=== PATIENT | female | born 1960 | race Two or more races ===

== ENCOUNTER → 2022-08-01 11:04 | Outpatient (BNVA) | payer OTHER, SELFPAY | PROVIDERS: PCP Internal Medicine; Visit Provider Dietitian, Registered | DX: E66.9 Obesity, unspecified (principal); Z68.34 Body mass index [BMI] 34.0-34.9, adult | CPT/HCPCS: 97802 ==

== ENCOUNTER 2025-03-05 08:32 | Outpatient (AMB) | payer OTHER, SELFPAY ==
--- NOTE | 2025-03-04 08:15 | MHC.OFFVIS ---
Vital Signs 03/05/25 08:37 Height 5 ft 5 in Weight 210 lb BMI 34.9 BP 140/79 H Blood Pressure Location Lt brachial Position Sitting Respiration 16 Pulse 100 Pulse Source Pulse Oximeter Pulse Oximetry (%) 96 Oxygen Delivery Method Room Air Intake Visit Reasons: Neuropathy /Fibromyalgia Rn Cvicu Required: No Allergies sulfamethoxazole [From Bactrim] Adverse Reaction (Severe, Verified 03/05/25 08:38) Anaphylaxis trimethoprim [From Bactrim] Adverse Reaction (Intermediate, Verified 03/05/25 08:38) Unknown oxycodone [From Percocet] Adverse Reaction (Unknown, Verified 03/05/25 08:38) Itching Medication List - Last Reconciled 03/05/25 by Ashley Rodarte LPN fluoxetine mg PO hydroxyzine HCl 25 mg PO DAILY HPI Comments Details: Aminata Is very pleasant 64 years old female who presents in my office with complains on pain in bilateral feet. She reports low socks distribution of the pain. She reports that she was diagnose with polyneuropathy in the past. She reports that she suffers from pain 30 years. It is not known what is the cause of her pain. She reports her pain in terms of tissue damage as tingling, stinging, numbness, burning, sharp, stiffness, poking sensation. She reports her pain in her feet 7 out of 10 today. She reported this pain sometimes getting even stronger to 8/10. She can not sleep normally because of her pain she can do activities of daily living she can take care of herself, but she can not function normally. She is working full-time as the therapist. Weather changes in motions aggravate her pain. Heat applications alleviate her pain. Oral medications alleviate her pain minimally. She reports that in the past she tried gabapentin to help her pain. It helped her pain moderately however she reports very severe dizziness and drowsiness on gabapentin even smaller doses. She tried Lyrica and Lyrica aggravated her depression and she had to stop because of the suicidal ideations. She found that fluoxetine helps her pain minimally to moderately. She tried acupuncture and it did not help her pain. Her past medical history significant for headaches, fatigue, depression anxiety and PTSD, shortness of breath, frequent UTIs, irritable bowel syndrome. Eight years ago she had fractured ankle and she has a surgery for the ORIF of the ankle. She denies smoking cigarettes. She denies drinking alcohol, she takes it less than once a month. She denies recreational drugs. [facility] Medical History (Updated 03/05/25 @ 09:08 by Aldo Baxter MD) Cervicalgia Fibromyalgia, primary Migraine Borderline personality disorder Restless leg syndrome JOSE (obstructive sleep apnea) Proctalgia fugax PTSD (post-traumatic stress disorder) Surgical History Hx of endoscopy Hx of eye surgery Hx of tubal ligation Hx of colonoscopy with polypectomy Hx of section S/P breast biopsy, right Family History Mother Depression Alcohol abuse Substance abuse Stroke Osteoporosis Father Pancreatic cancer FHx: cancer of prostate Cataract Colon polyps Sister Breast cancer, Onset Age: 60 Colon polyps Thyroid disease Spine degeneration Hypertension Brother CHF (congestive heart failure) Maternal Aunt Breast cancer Social History Household Members: Children Alcohol intake: current Alcohol intake frequency: a few times a month Patient Tobacco Use Status: Never used Tobacco Current occupational status: employed Current occupation: N Therapist Review of Systems Const All systems reviewed & are unremarkable except as noted in HPI and below Physical Exam Vital Signs: Last Vital Signs Pulse 100 03/05/25 08:37 Resp 16 03/05/25 08:37 BP 140/79 H 03/05/25 08:37 Pulse Ox 96 03/05/25 08:37 Oxygen Delivery Method Room Air 03/05/25 08:37 BMI result Body Mass Index 34.9 Const General: cooperative, healthy appearing, comfortable, no acute distress and well developed Nutritional Appearance: obese Orientation/consciousness: patient oriented x3 Limitations: no limitations HEENT Head: Yes normocephalic and Yes atraumatic Mouth: Normal oral and palatal mucosa present and moist mucous membranes Resp Effort & Inspection: normal respiratory effort and able to speak in complete sentences Cardio Jugular venous distension: no JVD GI Inspection: No distended Palpation (GI): Soft to palpation and nontender Neuro General: patient oriented x3 Extrem Other: No synovitis on inspection of the bilateral feet. no redness, no swelling Bilateral feet are sensitive to touch, significant tenderness , noswelling Normal gait Assessment & Plan Assessment & Plan (1) Idiopathic polyneuropathy: Code(s): G60.9 - Hereditary and idiopathic neuropathy, unspecified Category: Medical (2) Chronic pain syndrome: Code(s): G89.4 - Chronic pain syndrome Category: Medical Plan this patient came to my office with intention to perform a trial of Nevro spinal cord stimulator. She is suffering from peripheral neuropathy and it looks like that she will be a good candidate for Nevro SCS. She needs to go for psychological evaluation. As soon as she will past psychological evaluation we would need to admit her for the trial of Nevro SCS. Then it will be up to her to decide whether this device is helping her pain. Coding Level of Care Code New Pt Level 3 (11891) Diagnoses Idiopathic polyneuropathy G60.9 Chronic pain syndrome G89.4
[2025-03-05 08:37] VITALS: BP 140/79; PULSE 100; RESP 16; O2SAT 96; BMI 34.9
--- OUTSIDE RECORDS SUMMARY | 2025-03-05 08:45 | XMS_ITS | Encounter Summary ---
Author Organization [facility] Address [address] [place] [address] Care Team Providers Care Hotel Operation Manager Name Role Phone Teto Cardenas MD Primary Care Pr ovider Reason for Referral * Consultation (Routine) - Closed Specialty Diagnoses / Procedures Referred By Sarath mortensen Referred To Contact Otolaryngology Diagnoses Obstructive sleep apnea Teto Cardenas MD [address] [place] [id number] Phone: tel: fax: Federica Monzon MD [address] [facility] [address] [place] [address] Referral ID Status Reason Start Date Expiration Date V isits Requested Visits Authorized [id number] Closed Specialty Services Required 03/03/2025 03/03/2026 1 1 Encounter Details Date Type Department Care Team (Late st Contact Info) Description 03/03/2025 Telephone Adult Medicine [address] [address] eTto Cardenas MD [address] [place] [address] Social History Tobacco Use Types Packs/Day Years Used Date Smoking Tobacco: Never Smokeless Tobacco: Never Alcohol Use Standard Drinks/Week Comments Yes 0 (1 standard drink = 0.6 oz pur e alcohol) a glass of wine a month Housing Instability Answer Date Recorde d Are you worried that in the next 2 months you may not have stable housing? No 02/13/2025 Food Access & Nutrition Answer Date Rec orded Do you have access to a vari ety of food including fruits and vegetables? Yes 02/13/2025 Access to Healthcare Answer Date Record ed Within the last 3 months, ho w many times did you visit the emergency department for your medical care? 0 02/13/2025 Health Literacy Answer Date Recorded How often do you need to hav e someone help you when you read instructions, pamphlets, or other written material from your doctor or pharmacy? Never 02/13/2025 Caregiver: How often do you need to have someone help you when you read instructions, pamphlets, or other written material from your doctor or pharmacy? Not on file 02/13/2025 Financial Risk Answer Date Recorded How hard is it for you to pa y for the very basics like food, housing, medical care, and air conditioning / heating? Somewhat hard 02/13/2025 Transportation Answer Date Recorded Has the lack of transportati on kept you from meetings, work, or from getting things needed for daily living? No Has the lack of transportati on kept you from medical appointments or from getting medications? No 02/13/2025 Social Isolation Answer Date Recorded How often do you feel lonely or isolated from th ose around you? Never 02/13/2025 Food Risk Answer Date Recorded Within the past 12 months we worried whether our food would run out before we got money to buy more. Never true 02/13/2025 Within the past 12 months th e food we bought just didn't last and we didn't have money to get more. Never true 02/13/2025 Dependent Care Answer Date Recorded Do you need help finding or paying for care for your loved ones. For example, child and adolescent therapist or elderly care for an older adult? No 02/13/2025 Education Answer Date Recorded Do you think completing more education or training, like finishing a GED, going to college, or learning a trade, would be helpful for you? No 02/13/2025 Employment and Income Answer Date Recor ded During the last four weeks, have you been actively looking for work? No 02/13/2025 Living Situation Answer Date Recorded What is your living situation? 0 02/13/2025 Comments Unknown Sex and Gender Information Value Date Recorded Sex Assigned at Not on file Legal Sex Female 9:52 PM EST Gender Identity Not on file Sexual Orientation Not on file documented as of this encounter Progress Notes * Brandon Gilliland MA - 03/03/2025 10:05 AM EDT See 02/27/2025 [employer] message about referral. * Teto Cardenas MD - 03/03/2025 8:40 AM EDT New referral placed to provider in [facility] documented in this encounter Plan of Treatment Upcoming Encounters Date Type Department Care Team (Late st Contact Info) Description 03/13/2025 2:00 PM EDT Evaluation Outpatient [address] [address] Quinn Weston, PT [address] [place] [address] Scheduled Referrals Name Type Priority Associated Diagnoses Order Schedule Ambulatory referral to ENT Outpatient Referral Routine Obstructive sleep apnea 1 Occurrences starting 03/03/2025 until 03/03/2026 documented as of this encounter Visit Diagnoses Diagnosis Obstructive sleep apnea- Primary Obstructive sleep apnea (adult) (pediatric) documented in this encounter Additional Health Concerns Assessment Noted Time PHQ-9 Depression Total Score: 15 025 3:00 PM EDT documented as of this encounter Care Teams Hotel Operation Manager Relationship Specialty Start Date End Date Teto Cardenas MD [address] [place] [address] PCP - General 01/09/23 documented as of this encounter
--- OUTSIDE RECORDS SUMMARY | 2025-03-05 08:45 | XMS_ITS | Patient Health Record ---
Author Organization [facility] Address [address] [facility] [place] [address] Care Team Providers Care Group Home Supervisor Name Role Phone Delfino Farah Unavailable [phone] Allergies Allergen (clinical drug ingredient) Drug/Non Drug Allergy documented on EMR Reaction Allergy Type Onset Date Status sulfamethoxazole / trimethoprim Bactrim hives Drug Allergy Active acetaminophen / oxycodone Percocet itching Drug Allergy Active Reason For Referral No Information Medications Medication SIG (Take, Route, Frequency, Duration) Notes Start Date End Date Status Voltaren Active Phenazopyridine HCl 100 MG TAKE 2 CAPSUL ES BY MOUTH 3 TIMES A DAY NEEDED FOR PAIN Oral for 3 Not-Taking DULoxetine HCl 30 MG 1 capsule Orally On ce a day for 30 day(s) Not-Taking Pregabalin Active Allergy Active Fluoxetine Active Social History Tobacco Use: Social History Observation Description Date Details (start date - stop date) Never Smoker NA - NA Tobacco Use/Smoking Question Answer Notes Are you a: nonsmoker Additional Findings: Tobacco Non-User Aggressive non-smoker Alcohol Screen Question Answer Notes Did you have a drink containing alcohol in the p ast year? No Points 0 Interpretation Negative Tobacco use other than smoking: Question Answer Notes Are you an other tobacco user? No Problems Problem Type SNOMED Code ICD Code Onset Dates Problem Status W/U Status Risk Notes Problem Interstitial myositis (76619051) Interstitial myositis of left foot (M60.172) Active confirmed Plan Of Treatment Pending Test Test Name Order Date X ray : Foot, left 3V 06/21/2023 [id number] TENDON SHEATH/LIGAMENT 0 07/24/2023 Insurance Providers Payer Name Payer Address Payer Phone Subscriber Number Group Number Insured Name Patient Relationship to Insured Coverage Start Date Coverage End Date [employer] [address] [place] [phone] [id number] Christos Berwyn Self - patient is the insured Medical (General) History Medical History History ICD Code Depression ptsd Borderline Personality Disorder Restless leg syndrome Sleep apnea Headaches/Migraines Fibromyalgia Cervicalgia IBS Hemorrhage of gastrointestinal tract tubular adenoma Insomnia Anxiety peripheral neuropathic pain Neuropathy Surgical History Surgery Date(Month/Year) bilat eye sx 05/2017 Removal tumor polyp x3,Tubular adenoma x 1, hyperplastic x1. 2007 2 fx in right ankle 08/2019
--- OUTSIDE RECORDS SUMMARY | 2025-03-05 08:46 | XMS_ITS ---
Author Organization [facility] Address [address] [facility] [place] [address] Care Team Providers Care Residence Manager Name Role Phone Sofi Delfino Gresham [phone] Encounters Encounter Location Date Provider [facility] [address] [address] 09/10/2023 Delfino Farah Plan Of Treatment No Information Progress Notes * Mj ROGELaDOB:1960 (64 yo F)Acc No.[id number]:09/10/2023 Progress Notes Patient:Aminata LANTIGUA Provider:?Delfino Farah DPM :1960???Age:63 Y???Sex:Female D ate:09/10/2023 Address:[address] [facility] [address], [id number] Subjective: * Chief Complaints: * ??? * Medical History:? Objective: * Vitals:? Assessment: Plan: * Treatment: * Images: * The named appointment provid er may or may not be the originator of this progress note, and it is not deemed complete until electronically signed by the appointment provider. Sign off status: Pending * Provider:Rebecca Farah DPM Date:?2022 Generated for Chrissie ruiz/Ángel/eTransmitting on:?03/05/2025 08:45 AM EDT
--- OUTSIDE RECORDS SUMMARY | 2025-03-05 08:46 | XMS_ITS ---
Author Organization [facility] Address [address] [place] [address] Care Team Providers Care Architectural Examiner Name Role Phone Delfino Farah Unavailable [phone] REASON FOR VISIT 09/10/23 appt Encounters Encounter Location Date [facility] [address] [address] 09/07/2023 Delfino Farah Plan Of Treatment No Information Progress Notes * Kyra ROGELB:1960 (63 yo F)Acc No.[id number]:09/07/2023 Patient:?Aminata Rogel :1960???Age:63 Y???Sex:Female Address:[address] [facility] [address], [place], [address] * true * Date:? Generated for Printi ng/Malissag/eTransmitting on:?03/05/2025 08:45 AM EDT
--- OUTSIDE RECORDS SUMMARY | 2025-03-05 08:46 | XMS_ITS | Clinical Summary ---
Author Organization [address] Address [address] [place], [place] Phone Care Team Providers Care Hand Box Folder Name Role Phone Teto Cardenas MD Primary Care Pr ovider Allergies Active Allergy Reactions Criticality Noted Date Comments Oxycodone-Acetaminophen Itching 02/13/2013 Sulfa (Sulfonamide Antibiotics) 10/27/2022 Sulfamethoxazole-Trimethop rim 10/06/2015 Na Benzoate-Sulfamethoxazole- Trimethoprim Other Reaction(s): Hives/Urticaria Medications cetirizine (ZyrTEC) 10 mg capsule Take 1 Tab by mouth daily as needed. Active LORazepam (ATIVAN) 0.5 mg tablet Take 1 tablet (0.5 mg total) by mouth 1 (one) time each day if needed for anxiety. Max Daily Amount: 0.5 mg 10 tablet 4 Active hydrOXYzine HCL (ATARAX) 25 mg tabletIndicatio ns:Urticaria Take 1 tablet (25 mg total) by mouth at bedtime as needed for itching. 90 tablet 1 5 07/08/20 25 Active triamcinolone (KENALOG) 0.1 % ointmentIndicat ions:Dermatitis Apply small amounts to affected area every 12 hours. Do not use for more than 14 days at a time 15 g 5 Active FLUoxetine (PROzac) 20 mg capsuleIndicati ons:Anxiety and depression Take 1 capsule (20 mg total) by mouth 1 (one) time each day for 14 days, THEN 2 capsules (40 mg total) 1 (one) time each day. 168 capsule 5 05/28/20 25 Active meloxicam (Mobic) 7.5 mg tabletIndicatio ns:Bilateral hip pain Take 1 tablet (7.5 mg total) by mouth 1 (one) time each day if needed for moderate pain. 30 each 5 03/15/20 25 Active DULoxetine (CYMBALTA) [address] capsuleIndicati ons:Fibromyalgi a,Neuropathy Take 1 capsule (60 mg total) by mouth 1 (one) time each day. 90 capsule 1 5 02/14/20 25 Discontinue d(Therapy completed) cephalexin (KEFLEX) 500 mg capsule Take 1 capsule (500 mg total) by mouth 3 (three) times a day for 5 days. 15 each 5 02/28/20 25 Active Problems Problem Noted Date Diagnosed Date Interstitial cystitis 02/20/2025 Anxiety and depression 02/13/2025 Assessment & Plan (02/13/2025 9:20 PM EDT): Provided with information on how to wean off duloxetine. Start prozac Orders: FLUoxetine (PROzac) 20 mg capsule; Take 1 capsule (20 mg total) by mouth 1 (one) time each day for 14 days, THEN 2 capsules (40 mg total) 1 (one) time each day. Urticaria 01/09/2025 Assessment & Plan (02/13/2025 9:20 PM EDT): Continue hydrozyine 25mg nightly as needed Assessment & Plan (01/09/2025 12:58 PM EDT): Continue hydroxyzine as needed. She will resume [id number] Zyrtec Orders: hydrOXYzine HCL (ATARAX) 25 mg tablet; Take 1 tablet (25 mg total) by mouth at bedtime as needed for itching. Hyperlipidemia 07/18/2023 Assessment & Plan (02/13/2025 9:20 PM EDT): Currently not on statin Labs ordered at last visit which she will complete Assessment & Plan (01/09/2025 12:58 PM EDT): Currently not on a statin. Will update fasting labs Orders: Comprehensive metabolic panel; Future Lipid panel with reflex to direct LDL; Future Hemoglobin A1c; Future Neuropathy 07/18/2023 Assessment & Plan (02/13/2025 9:20 PM EDT): See hpi. [place] [facility] [place] Start OTC Voltaren gel which she already has. She does not need refills at this time Orders: Ambulatory referral to Pain Medicine; Future Assessment & Plan (01/09/2025 12:58 PM EDT): Orders: DULoxetine (CYMBALTA) [address] capsule; Take 1 capsule (60 mg total) by mouth 1 (one) time each day. Proctalgia fugax 04/13/2020 RLS (restless legs syndrome) 10/16/2014 Assessment & Plan (02/13/2025 9:20 PM EDT): Continue weighted blanket Orders: CBC and differential; Future Ferritin; Future Assessment & Plan (01/09/2025 12:58 PM EDT): Continue with weighted blanket at night which helps Obstructive sleep apnea 07/03/2014 Overview (10/09/2024): Polysomnogram: [facility] [place] RDI, Optimal CPAP 7->AHI 4 Resp sleep study 04-24-06 [facility] AHI 10.9 some CStokes observed, 08-01-06 [facility] AHI 4.7 w BiPAP 10/03 w Biflex 3 as initital setting RBMG Full Polysomnogram: Date 06/19/2014; SE 89%; SM 90%; REM 26.2% of study. RDI 16.9 (AHI 8.2), worse in REM (RDI 22.6 - AHI 18), Central apneas 3; Obstructive apneas 28; Mixed apneas 5; hypopneas 18; RERAs 57; worse supine, snored for 64% of the study; average oxygen saturation 92% (lowest 70%); average ETCO2 40 torr (highest 52 torr) PLMAI ~19.9 with PML 75.1/hour. Polysomnogram treatment study. Date 08/03/2014 . SE 84 % SM 90 %; spent 28.8 % of the study in REM. At the optimal pressure of 9; RDI 2.0 (AHI 0.8), Central apneas 1; Obstructive apneas 1; Mixed apneas 0; hypopneas 1; RERAs 5; and, average oxygen saturation was 94%. For the entire study, ETCO2 was 36 torr on average (49 torr highest); and, PLMAI ~11 with PLMs 56.2/hr. Compared to the diagnostic polysomnogram, there was improvement in RDI, AHI and snoring with a pressure of 9. [facility] Home Sleep Apnea Test: Date 03/21/2020; BMI 34; RDI 13, AHI 12; average oxygen saturation 93% (lowest 79% without saturations <88% for 5% or more of study) - Obstructive Sleep Apnea - mild; without sleep related hypoventilation by 2019 home sleep apnea test. Assessment & Plan (02/13/2025 9:20 PM EDT): Unable to tolerate CPAP due to claustrophobia. Referred to ENT for consideration of inspire procedure Orders: Ambulatory referral to ENT; Future Fibromyalgia 08/13/2012 Overview (10/09/2024): Onset 2010. Assessment & Plan (02/13/2025 9:20 PM EDT): See hpi. [place] [facility] [place] Offered pregabalin since we will be weaning off duloxetine which she declines for now. She will prefer to see pain mgt first Orders: Ambulatory referral to Pain Medicine; Future Assessment & Plan (01/09/2025 12:58 PM EDT): Continue duloxetine Orders: DULoxetine (CYMBALTA) 60 mg capsule; Take 1 capsule (60 mg total) by mouth 1 (one) time each day. Migraine 08/13/2012 Overview (10/09/2024): Onset 2010 Cervicalgia 06/28/2009 Irritable bowel syndrome wit h both constipation and diarrhea 09/11/2008 Overview (10/09/2024): Alternating C/D, onset in 20's. Assessment & Plan (02/13/2025 9:20 PM EDT): Continue OTC stool softener as needed Insomnia, unspecified 07/25/2006 Severe obesity (BMI 35.0-35. 9 with comorbidity) (CMS/[facility] V24, CMS/[facility] V28) 07/25/2006 Assessment & Plan (02/13/2025 9:20 PM EDT): We discussed the option for weight loss medication. She is interested in weight management consult and a referral is placed Orders: Ambulatory referral to Bariatric Surgery; Future Resolved Problems Problem Noted Date Diagnosed Date Resolved Date Hemorrhage of gastrointestinal tract 09/11/2008 02/13/2025 Overview (10/09/2024): IMO update Sleep apnea 05/28/2006 01/09/2025 Overview (10/09/2024): BIPAP 10/03. Repeat studies 09/2008 showed no sleep apnea. IMO update Depressive disorder 04/10/2006 02/14/20 Overview (10/09/2024): Dr. Robert ([facility])- PTSD, memory problems Encounters Date Type Department Care Team Description 03/03/2025 Telephone Adult Medicine [address] [phone] Teto Cardenas MD 02/20/2025 1:00 PM EDT Office Visit Adult Medicine [address] [phone] Ailyn Lowery PA Malodorous urine (Primary Dx); Dysuria 02/20/[address] [phone] Teto Cardenas MD Urinary Problem 02/20/2025 Nurse Triage [address] [phone] Teto Cardenas MD 02/14/2025 9:52 AM EDT - 02/14/2025 11:59 PM EDT Hospital Encounter Radiology Department [address] [phone] Breast cancer screening by mammogram Discharge Disposition: Home or Self Care 02/13/2025 3:55 PM EDT - 02/13/2025 11:59 PM EDT Hospital Encounter XRAY [address] [phone] Bilateral hip pain Discharge Disposition: Home or Self Care 02/13/2025 3:00 PM EDT Office Visit [address] [phone] Teto Cardenas MD Annual physical exam (Primary Dx); RLS (restless legs syndrome); Mixed hyperlipidemia; Neuropathy; Fibromyalgia; Anxiety and depression; Bilateral hip pain; Obesity (BMI 30.0-34.9); Breast cancer screening by mammogram; Obstructive sleep apnea; Urticaria; Irritable bowel syndrome with both constipation and diarrhea 01/09/2025 12:30 PM EDT Office Visit [address] [phone] Teto Cardenas MD Impetigo (Primary Dx); Dermatitis; Fibromyalgia; Neuropathy; Urticaria; RLS (restless legs syndrome); Mixed hyperlipidemia 01/05/2025 Nurse Triage Adult [address] [place] [phone] Teto Cardenas MD itchiness 12/15/2024 9:00 AM EST Office Visit Walk-In Clinic - [address] [phone] Honey Jean Baptiste NP Acute cystitis without hematuria (Primary Dx); Dysuria from Last 3 Months Immunizations Name Administration Dates Next Due H1N1 Inj Preservative Free 10/20/2009 Hepatitis B (Recombivax HB-D ialysis) 18yo and older 11/25/2004,06/28/2004,05/25/2004 Influenza Quadravalent, MDCK , 0.5ml, preservative free (Flucelvax) 6mo and older 07/11/2023,08/04/2021,11/26/2018 Influenza trivalent, 0.5mL, preservative free (Fluarix; FluLaval; Fluzone) ages 6mo and older (Afluria) 3 years and older 07/20/2024,09/30/2022,09/10/2019,2016,08/21/2011,08/23/2010,10/20/2009,1 11/14/2007,09/10/2007 PPD Test 06/11/2014, 4,07/25/2012,2003 Td Tetanus diptheria (Tdvax) 7yo and older 12/30/2021,03/29/2004 Tdap Tetanus diptheria acell ular pertussis (Boostrix; Adacel) 7yo and older 12/16/2010 Zoster recombinant (Shingrix ) 19yo and older 03/01/2024,07/11/2023 Surgical History Surgery Date Site/Laterality Comments BREAST LUMPECTOMY 2003- PROCEDURE: ---- BREAST LUMP BIOPSY ----; COMMENT: right/benign SECTION PROCEDURE: [facility] DELIVERY ONLY TUBAL LIGATION PROCEDURE: HISTORICAL TUBAL LIGATION BREAST BIOPSY Right PROCEDURE: BX BREAST; PERC NEEDLE CORE W/IMAG GUID; COMMENT: neg EYE SURGERY 05/2017 Bilateral PROCEDURE: HISTORICAL EYE SURGERY; COMMENT: closed angle glaucoma COLONOSCOPY 2013 PROCEDURE: HISTORICAL COLONOSCOPY; COMMENT: no polyps UPPER GASTROINTESTINAL ENDOSCOPY 10/06/2008 PROCEDURE: [facility] UPPER GI ENDOSCOPY PERFORMED; COMMENT: duodenal bx: wnl COLONOSCOPY 10/06/2008 PROCEDURE: HISTORICAL COLONOSCOPY; COMMENT: polyps x 3: Tubular adenoma x 1, hyperplastic x 1. COLONOSCOPY 06/30/2020 PROCEDURE: HISTORICAL COLONOSCOPY; COMMENT: Solitary 5 mm polyp ascending colon: Sessile serrated adenoma. ANKLE SURGERY Right unsure year Medical History Medical History Date Comments Generalized anxiety disorder DX: Generalized anxiety disorder Depressive disorder, not els ewhere classified DX:Depressive disorder, not elsewhere classified Unspecified sleep apnea DX:Unspe cified sleep apnea Family history of colonic polyps 09/11/2008 DX:Family history of colonic polyps IBS (irritable bowel syndrome) 09/11/2008 D X:IBS (irritable bowel syndrome) Hemorrhage of gastrointestin al tract, unspecified 09/11/2008 DX:Hemorrhage of gastrointes tinal tract, unspecified History of colonoscopy with polypectomy 10/06/2008 DX:History of colonoscopy wi th polypectomy; COMMENT: 10/05, tubular adenoma x 2, Dr Moreno, repeat 5 yrs. Anemia, unspecified DX:Anemia, u nspecified Nephritis and nephropathy, n ot specified as acute or chronic, with unspecified pathological lesion in kidney DX:Nephritis and nephropathy , not specified as acute or chronic, with unspecified pathological lesion in kidney Generalized osteoarthrosis, unspecified site DX:Generalized osteoarthrosi s, unspecified site Other syndromes affecting ce rvical region 02/21/2010 DX:Other syndromes affecting cervical region Migraine 08/13/2012 DX:Migraine Fibromyalgia 08/13/2012 DX:Fibromyalgia Atrophy of right kidney DX:Atrop hy of right kidney; COMMENT: chronic per pt Hemorrhage of gastrointestinal tract 09/11/2008 IMO update Depressive disorder 04/10/2006 Dr. Robert ([facility])- PTSD, memory problems Family History Medical History Relation Name Comments Heart failure Brother 1 Asthma Daughter 1 Cataracts Father Colon polyps Father age > 60 Pancreatic cancer Father Prostate cancer Father Alcohol/Drug Mother alcohol Depression Mother depression Other: osteoporosis Mother Stroke Mother Breast cancer Mother's side m aunt aunt Breast cancer Sister 1 60s double mas t. Colon polyps Sister 2 age > 60 Other: back degeneration Sister 3 sev eral surgeries Thyroid disease Sister 4 Hypertension Sister 5 Blindness Neg Hx Colon cancer Neg Hx Glaucoma Neg Hx Macular degeneration Neg Hx Strabismus Neg Hx Relation Name Status Comments Brother 1 Brother 2 Brother 3 Alive x4 Daughter 1 Daughter 2 Alive Father (Age 80) Maternal Grandfather Maternal Grandmother Mother (Age 80) Mother's side m aunt Paternal Grandfather Paternal Grandmother Sister 1 Alive x2 Sister 2 Sister 3 Sister 4 Sister 5 Social History Tobacco Use Types Packs/Day Years Used Date Smoking Tobacco: Never Smokeless Tobacco: Never Tobacco Cessation:Counseling Given: Not Answered Alcohol Use Standard Drinks/Week Comments Yes 0 [...] care for your loved ones. For example, children's counselor or elderly care for an older adult? [...] on file Sexual Orientation Not on file Obstetrics History Para Term AB IAB SAB Ectopic Multiple Livin g Live Births 1 1 1 1 Date Outcome GA Total Labor Labor/2nd/3rd Weight Sex Type Anes PTL Kesha A1 A5 Name Clin Term Last Filed Vital Signs Vital Sign Reading Time Taken Comments Blood Pressure 122/60 02/20/2025 1:25 PM EDT Pulse 85 02/20/2025 1:25 PM EDT Temperature 36.6 ??C (97.8 ??F) 02/20/2025 1:25 PM ED T Respiratory Rate 14 02/20/2025 1:25 PM EDT Oxygen Saturation 94% 02/20/2025 1:25 PM EDT Inhaled Oxygen Concentration - - Weight 96.2 kg (212 lb) 02/20/2025 1:25 PM EDT Height 165.1 cm (5' 5 ) 02/20/2025 1:25 PM EDT Body Mass Index 35.28 02/20/2025 1:25 PM EDT Plan of Treatment Upcoming Encounters Date Type Department Care Team (Late st Contact Info) Description 03/13/2025 2:00 PM EDT Evaluation Outpatient Rehabilitation [address] [phone] Quinn Weston, PT [address] [place] [address] Health Maintenance Due Date Last Done Comments RSV Immunization Adult Patients (1 - Risk 60-74 years 1-dose series) 2020 Depression Screening 02/13/2026 02/13/2025, 02/06/20 24 Social Influencers of Health Screening 02/13/2026 02/13/2025 Breast Cancer Screening 02/14/2027 02/15/20 25, 01/18/2024, 11/16/2022, Additional history exists Cervical Cancer Screening: HPV 03/03/2027 03/03/2022 Colorectal Cancer Screening: Colonoscopy 06/30/2027 06/30/2020 Cholesterol Screening (Lipid Panel) 03/19/2028 03/19/2023, 05/04/2020 DTaP,Tdap,and Td Vaccines (4 - Td or Tdap) 12/31/2031 12/30/2021, 12/16/2010, 03/29/2004 Hepatitis B Vaccines Completed 11/25/2004, 06/28/2004, 05/25/2004 HIV Screening Completed 07/29/2009 Hepatitis C Screening Completed 04/23/2017 COVID-19 Vaccine Discontinued 09/26/2021, , 11/19/2020 Zoster Vaccines Completed 03/01/2024, 07/11/2023 Influenza Vaccine Completed 07/20/2024, , 09/30/2022, Additional history exists HIB Vaccines Aged Out No longer eligi ble based on patient's age to complete this topic HPV Vaccines Aged Out No longer eligi ble based on patient's age to complete this topic Hepatitis A Vaccines Aged Out No long er eligible based on patient's age to complete this topic IPV Vaccines Aged Out No longer eligi ble based on patient's age to complete this topic MMR Vaccines Aged Out No longer eligi ble based on patient's age to complete this topic Meningococcal ACWY Vaccine Aged Out N o longer eligible based on patient's age to complete this topic Meningococcal B Vaccine Aged Out No l onger eligible based on patient's age to complete this topic Pneumococcal Vaccine: 50+ Years Discontinued Pneumococcal Vaccine: Pediatrics (0 to 5 Years) and At-Risk Patients (6 to 64 Years) Aged Out No longer eligible based on patient's age to complete this topic RSV Immunization Patients Under 20 months Aged Out No longer eligible based on patient's age to complete this topic Varicella Vaccines Aged Out No longer eligible based on patient's age to complete this topic Procedures Procedure Name Priority Date/Time Associated Diagnosis Comments CHEW URINE CULTURE TUBE Routine 02/20/2025 1:59 PM EDT Malodorous urine Dysuria URINALYSIS WITH REFLEX MICROSCOPIC AND CULTURE Routine 02/20/2025 1:59 PM EDT Malodorous urine Dysuria URINALYSIS WITH REFLEX MICROSCOPIC AND CULTURE Routine 02/20/2025 1:59 PM EDT Malodorous urine Dysuria CULTURE URINE Routine 02/20/2025 1:59 PM EDT Malodorous urine Dysuria MG MAMMO DIGITAL SCREENING W DEMETRIUS BILAT Routine 02/14/2025 10:03 AM EDT Breast cancer screening by mammogram XR HIPS 5+ VIEWS WO OR W PELVIS BILAT Routine 02/13/2025 4:02 PM EDT Bilateral hip pain POC URINE NON-AUTO W/O MICRO Routine 12/15/2024 10:11 AM EST Dysuria CULTURE URINE Routine 12/15/2024 9:44 AM EST Dysuria HM DEPRESSION SCREENING Routine 02/06/2024 LIPID PANEL Routine 03/19/2023 HM HPV Routine 03/03/2022 HM COLONOSCOPY Routine 06/30/2020 HM HEPATITIS C SCREENING Routine 04/23/2017 HM HIV SCREENING Routine 07/29/2009 from Last 3 Months or Most Recently Relevant to Health Maintenance Results * (ABNORMAL) Urinalysis with reflex microscopic and culture (02/20/2025 1:59 PM EDT) Specific Severy Urine 1.009 1.003 - 1.030 LAB URINALYSIS - AUTOMATED METHOD 02/20/2025 4:55 PM [facility] pH, Urine 6.5 5.0 - 8.0 pH LAB URINALYSIS - AUTOMATED METHOD 02/20/2025 4:55 PM [facility] Leukocytes, Urine Moderate(A) Negative LAB URINALYSIS - AUTOMATED METHOD 02/20/2025 4:55 PM [facility] Nitrite, Urine Negative Negative LAB URINALYSIS - AUTOMATED METHOD 02/20/2025 4:55 PM [facility] Protein, Urine Negative <=Trace mg/dL LAB URINALYSIS - AUTOMATED METHOD 02/20/2025 4:55 PM [facility] Glucose, Urine Negative Negative mg/dL LAB URINALYSIS - AUTOMATED METHOD 02/20/2025 4:55 PM [facility] Ketones, Urine Negative Negative mg/dL LAB URINALYSIS - AUTOMATED METHOD 02/20/2025 4:55 PM [facility] Urobilinogen , Urine 0.2 0.2 - 1.0 mg/dL LAB URINALYSIS - AUTOMATED METHOD 02/20/2025 4:55 PM [facility] Bilirubin, Urine Negative Negative LAB URINALYSIS - AUTOMATED METHOD 02/20/2025 4:55 PM [facility] Blood, Urine Negative Negative LAB URINALYSIS - AUTOMATED METHOD 02/20/2025 4:55 PM [facility] RBC, Urine 1.0 0 - 4 /HPF LAB URINALYSIS - AUTOMATED METHOD 02/20/2025 4:55 PM [facility] WBC, Urine 22.1(H) 0 - 4 /HPF LAB URINALYSIS - AUTOMATED METHOD 02/20/2025 4:55 PM [facility] Squamous Epithelial, Urine 22 0 - 60 /LPF LAB URINALYSIS - AUTOMATED METHOD 02/20/2025 4:55 PM EDT [facility] Bacteria, Urine Many(A) Negative /HPF LAB URINALYSIS - AUTOMATED METHOD 02/20/2025 4:55 PM EDT [facility] Hyaline Casts, Urine 1.6 0 - 3 /LPF LAB URINALYSIS - AUTOMATED METHOD 02/20/2025 4:55 PM EDT [facility] Urine Urine specimen obtained by clean catch procedure / Unknown Non-blood Collection / Unknown 02/20/2025 1:59 PM EDT 02/20/2025 1:59 PM EDT us Ailyn JAEGER LAB URINE ORDERABLES Final Re sult Performing Organization Address [facility]/ZIP Co de Phone Number [facility] [address] [place] [address], [place] [phone] * Chew urine culture tube (02/20/2025 1:59 PM EDT) Extra Tube Hold for add-ons. 02/20/2025 7:01 PM EDT [facility] Comment:Auto resulted. Urine Urine specimen obtained by clean catch procedure / Unknown Non-blood Collection / Unknown 02/20/2025 1:59 PM EDT 02/20/2025 1:59 PM EDT us Ailyn JAEGER LAB URINE ORDERABLES Final Re sult [facility] [address] [place] [address], [place] [phone] * (ABNORMAL) Culture urine (02/20/2025 1:59 PM EDT) Only the most recent of2 resultswithin the time period is included. Culture, Urine >100,000 CFU/mL Aerococcus urinae(A) GUDELIA 02/23/2025 7:56 AM EDT [facility] Comment: Susceptibility testing not routinely performed. ??If further therapeutic information is required, please consult an infectious disease specialist. The organism value for this result has been updated. These results have been appended to the previously preliminary verified report. This is an edited result. Previous organism was Streptococcus alpha-hemolytic on 02/22/2025 at 1059 EDT. Urine Urine specimen obtained by clean catch procedure / Unknown Non-blood Collection / Unknown 02/20/2025 1:59 PM EDT 02/20/2025 4:55 PM EDT Narrative [facility] - 02/23/2025 7:56 AM EDT Additional colony types present in insignificant amounts. us Ailyn JAEGER LAB MICROBIOLOGY - GENERAL OR DERABLES Final Result [facility] [address] [place] [address], [place] [phone] * MG Mammo Digital Screening w Demetrius bilat (02/14/2025 10:03 AM EDT) Anatomical Region Laterality Modality Breast Bilateral Mammography 02/16/2025 7:17 AM EDT Impressions 02/16/2025 7:21 AM EDT BILATERAL BREASTS: Benign, no evidence of malignancy. Normal interval follow-up is recommended in 12 months. BREAST DENSITY: B - There are scattered areas of fibroglandular density. BI-RADS CATEGORY: 2 - BENIGN RECOMMENDATION: Screening bilateral mammogram is recommended in 1 year. Mammo Location: [facility], [address] [place] [address], [id number], . -------- FINAL REPORT -------- Dictated By: Ward Barrientos Dictated Date: 02/16/2025 07:17 ET Assigned Physician: Ward Barrientos Reviewed and Electronically Signed By: Ward Barrientos Signed Date: 02/16/2025 07:21 ET Workstation ID: [id number] Transcribed By: Self Edit Transcribed Date: 02/16/2025 07:17 ET Narrative 02/16/2025 7:21 AM EDT STUDY: Bilateral screening mammography with tomosynthesis and CAD TECHNIQUE: Bilateral full-field digital screening mammography is obtained and read in conjunction with computer-aided detection. ??Tomosynthesis as well as 2-D C view imaging were obtained. ?? COMPARISON: Comparison made to multiple prior, most recent January 18, 2024, and most remote April 16, 2017. RIGHT BREAST: ??History of previous excisional biopsy. No significant masses, suspicious calcifications or other abnormalities are seen. LEFT BREAST: No significant masses, suspicious calcifications or other abnormalities are seen. Procedure Note Ward Barrientos MD - 02/16/2025 STUDY: Bilateral screening mammography with tomosynthesis and CAD TECHNIQUE: Bilateral full-field digital screening mammography is obtainedand read in conjunction with computer-aided detection. Tomosynthesis aswell as 2-D C view imaging were obtained. COMPARISON: Comparison made to multiple prior, most recent January 18, 2024,and most remote April 16, 2017. RIGHT BREAST: History of previous excisional biopsy. No significantmasses, suspicious calcifications or other abnormalities are seen. LEFT BREAST: No significant masses, suspicious calcifications or otherabnormalities are seen. IMPRESSION: BILATERAL BREASTS: Benign, no evidence of malignancy. Normal intervalfollow-up is recommended in 12 months. BREAST DENSITY: B - There are scattered areas of fibroglandular density. BI-RADS CATEGORY: 2 - BENIGN RECOMMENDATION: Screening bilateral mammogram is recommended in 1 year. Mammo Location: [facility], [address] [place] [address], [id number], . -------- FINAL REPORT -------- Dictated By: Ward Barrientos Dictated Date: 02/16/2025 07:17 ET Assigned Physician: Ward Barrientos Reviewed and Electronically Signed By: Ward Barrientos Signed Date: 02/16/2025 07:21 ET Workstation ID: [id number] Transcribed By: Self Edit Transcribed Date: 02/16/2025 07:17 ET Teto Cardenas MD IMG BI PROCEDURE S Final Result * XR Hips 5+ Views wo or w Pelvis bilat (02/13/2025 4:02 PM EDT) Anatomical Region Laterality Modality Lower Extremities, Hip Bilateral Radiograp hic Imaging 02/13/2025 4:11 PM EDT Impressions 02/13/2025 4:12 PM EDT Normal study. -------- FINAL REPORT -------- Dictated By: Amaya Garcia Dictated Date: 02/13/2025 16:11 ET Assigned Physician: Amaya Garcia Reviewed and Electronically Signed By: Amaya Garcia Signed Date: 02/13/2025 16:12 ET Workstation ID: [id number] Transcribed By: Self Edit Transcribed Date: 02/13/2025 16:11 ET Narrative 02/13/2025 4:12 PM EDT PELVIS, FRONTAL VIEW BILATERAL HIPS, 2 VIEWS EACH HISTORY: Bilateral hip pain. PRIOR: None. FINDINGS: No acute fracture or malalignment is seen. ??Soft tissues are normal. Procedure Note Amaya Garcia MD - 02/13/2025 PELVIS, FRONTAL VIEW BILATERAL HIPS, 2 VIEWS EACH HISTORY: Bilateral hip pain. PRIOR: None. FINDINGS: No acute fracture or malalignment is seen. Soft tissues are normal. IMPRESSION: Normal study. -------- FINAL REPORT -------- Dictated By: Amaya Garcia Dictated Date: 02/13/2025 16:11 ET Assigned Physician: Amaya Garcia Reviewed and Electronically Signed By: Amaya Garcia Signed Date: 02/13/2025 16:12 ET Workstation ID: [id number] Transcribed By: Self Edit Transcribed Date: 02/13/2025 16:11 ET Teto KNIGHT XR PROCEDURE S Final Result * (ABNORMAL) POC Urine Non-Auto W/O Micro (12/15/2024 10:11 AM EST) [facility] GLUCOSE POC Negative Negative, Trace mg/dL Leukocytes UA POC 2+(A) Negative Nitrite UA POC Negative Urobilinogen UA POC >=8.0 E.U./dL mg/dL Protein UA POC Negative Negative PH UA POC 7.0 Blood UA POC Negative Negative SPECIFIC GRAVITY POC 1.010 Ketones UA POC Negative Negative Bilirubin UA POC Negative Negative Appearance UA POC Clear Color UA POC Yellow Urine Urine specimen obtained by clean catch procedure / Unknown 12/15/2024 10:11 AM EST Result [facility] Honey Jean Baptiste NP POINT OF CARE TEST ENTER/EDIT ORDERABLES Final Result * Depression Screening (02/06/2024) [facility] Depression Screening abstracted [facility] Provider HEALTH MAINTENANCE Final Result * (ABNORMAL) Lipid panel (03/19/2023) [facility] LDL/HDL Ratio 4 0 - 4 Triglycerides 90 0 - 150 mg/dL Cholesterol 201(A) 0 - 200 mg/dL HDL 49 >=40 mg/dL LDL Cholesterol 134(A) 0 - 100 mg/dL Blood Venous blood specimen / Unknown Result [facility] Provider LAB BLOOD ORDERABLES Breanne l Result * Cervical Cancer Screening: HPV (03/03/2022) [facility] Cervical Cancer Screening: HPV no interpretation , abstracted [facility] Provider HEALTH MAINTENANCE Final Result * Colonoscopy (06/30/2020) [facility] Colonoscopy no interpretation , abstracted Anatomical Region Laterality Modality Other Result [facility] Provider HEALTH MAINTENANCE Final Result * Hepatitis C Screening (04/23/2017) [facility] Hepatitis C Screening abstracted [facility] Provider HEALTH MAINTENANCE Final Result * HIV Screening (07/29/2009) HIV Screening abstracted us Historical Provider HEALTH MAINTENANCE Final Result from Last 3 Months or Most Recently Relevant to Health Maintenance Insurance [employer] Care Teams Hand Box Folder Relationship Specialty Start Date End Date Teto Cardenas MD [address] [place] [phone] PCP - General 01/09/23
== END 2025-03-05 09:12 | disposition home or self-care (01) ==
LOC: HO.PMC 08:33
PROVIDERS: PCP Internal Medicine; Referring Provider Family Medicine; Visit Provider Anesthesiology
DX: G60.9 Hereditary and idiopathic neuropathy, unspecified (principal); G89.4 Chronic pain syndrome
CPT/HCPCS: 99203

== ENCOUNTER → 2025-03-05 08:32 | Outpatient (BNVA) | payer OTHER, SELFPAY | PROVIDERS: PCP Internal Medicine; Referring Provider Family Medicine; Visit Provider Anesthesiology ==

== ENCOUNTER 2025-09-09 10:55 | Outpatient (REF) | payer OTHER, SELFPAY ==
--- NOTE | 2025-09-09 | EMG_ITS ---
Chief complaint:?R20.0 Anesthesia of skin R20.2 Paresthesia of skin Reason for referral: Pain numbness and tingling feet Referred by:?Curt Arana MD Procedure done: Bilateral lower extremities NCS/EMG Bilateral peroneal and tibial motor studies were performed with F responses. Bilateral superficial and sural sensory studies were performed median and lateral mixed plantars sensory studies were performed and tibial H reflexes were obtained. Paraspinals were tested with a needle. Findings: Bilateral superficial peroneal and median and lateral mixed plantars sensory responses were absent. Sural amplitude were somewhat diminished with normal conduction velocity. Motor studies did not reveal any significant abnormality. H responses were absent. Impression: 1. 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 Underlying sensory axonal peripheral neuropathy [place] [address] 2 extremities MTDD
--- OUTSIDE RECORDS SUMMARY | 2025-09-09 13:20 | XMS_ITS | Clinical Summary ---
Author Organization [facility] [address] [place] [address] [place] [phone] Phone Care Team Providers Care Cryptological Technician Name Role Phone Teto Cardenas MD Primary Care Pr ovider Allergies Active Allergy Reactions Criticality Noted Date Comments Oxycodone-Acetaminophen Itching 02/13/2013 Sulfa (Sulfonamide Antibiotics) 10/27/2022 Sulfamethoxazole-Trimethop rim 10/06/2015 Na Benzoate-Sulfamethoxazole- Trimethoprim Other Reaction(s): Hives/Urticaria Medications cetirizine (ZyrTEC) 10 mg capsule Take 1 Tab by mouth daily as needed. Active FLUoxetine (PROzac) 40 mg capsule Take 1 capsule (40 mg total) by mouth 1 (one) time each day. 90 capsule 1 5 Active cyclobenzaprine (FLEXERIL) 10 mg tablet Take 0.5-1 tablets (5-10 mg total) by mouth at bedtime as needed for muscle spasms. 30 tablet 5 Active Additional Information Patient not taking.Reported on 08/27/2025 LORazepam (ATIVAN) 1 mg tablet Take 1 tablet (1 mg total) by mouth 1 (one) time each day if needed for anxiety. 10 tablet 5 Active methenamine hippurate (Hiprex) 1 gram tablet Take 1 tablet (1 g total) by mouth 2 (two) times a day with meals. 60 each 11 5 05/26/20 26 Active hydrOXYzine HCL (ATARAX) 25 mg tabletIndicatio ns:Urticaria TAKE 1 TABLET BY MOUTH AT BEDTIME NEEDED FOR ITCHING. 90 tablet 1 5 Active Active Problems Problem Noted Date Diagnosed Date [...] Continue hydroxyzine as needed. She will resume [id number] Zyrtec Orders: hydrOXYzine HCL (ATARAX) 25 mg [...] hpi. [place] [facility] [place] Start OTC Voltaren gel [...] Overview (10/09/2024): Polysomnogram: [facility] [place] RDI, Optimal CPAP 7->AHI 4 Resp sleep study 04-24-06 [facility] AHI 10.9 some CStokes observed, 08-01-06 [facility] AHI 4.7 w BiPAP 10/03 w Biflex 3 as initital setting [facility]BM Full Polysomnogram: Date 06/19/2014; SE 89%; SM [...] and snoring with a pressure of 9. [facility] Home Sleep Apnea Test: Date 03/21/2020; BMI [...] hpi. [place] [facility] [place] Offered pregabalin since we will be weaning off duloxetine which she declines for now. She will prefer to see pain mgt first Orders: Ambulatory referral to Pain Medicine; Future Assessment & Plan (01/09/2025 12:58 PM EDT): Continue duloxetine Orders: DULoxetine (CYMBALTA) [address] capsule; Take 1 capsule (60 mg total) by mouth 1 (one) time each day. Migraine 08/13/2012 Overview (10/09/2024): Onset 2010 Cervicalgia 06/28/2009 Irritable bowel syndrome wit h both constipation and diarrhea 09/11/2008 Overview (10/09/2024): Alternating C/D, onset in s. Assessment & Plan (02/13/2025 9:20 PM EDT): Continue OTC stool softener as needed Insomnia, unspecified 07/25/2006 Severe obesity (BMI 35.0-35. 9 with comorbidity) ([facility] V24, [facility] V28) 07/25/2006 Assessment & Plan (02/13/2025 9:20 PM EDT): We discussed the option for weight loss medication. She is interested in weight management consult and a referral is placed Orders: Ambulatory referral to Bariatric Surgery; Future Resolved Problems Problem Noted Date Diagnosed Date Resolved Date Hemorrhage of gastrointestinal tract 09/11/2008 02/13/2025 [place] (10/09/2024[place] [facility] [place] Sleep apnea 05/28/2006 01/09/2025 Overview (10/09/2024): BIPAP 10/03. Repeat studies 09/2008 showed no sleep apnea. [facility] [place] Depressive disorder 04/10/2006 02/14/20 Overview (10/09/2024): Dr. 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 Telephone Adult Medicine [address] [phone] Teto Cardenas MD 07/11/2025 9:30 AM EDT Office Visit Walk-In Clinic - [address] [phone] Zach Serrato PA Acute cystitis without hematuria (Primary Dx) from Last 3 Months Immunizations Immunization Administration Dates Next Due H1N1 Inj Preservative Free 10/20/2009 Hepatitis B (Recombivax HB-D ialysis) 18yo and older 11/25/2004,06/28/2004,05/25/2004 Influenza Quadravalent, MDCK , 0.5ml, preservative free (Flucelvax) 6mo and older 07/11/2023,08/04/2021,11/26/2018 Influenza trivalent, 0.5mL ( Fluzone High-dose) 65yo and older 08/14/2025 Influenza trivalent, 0.5mL, preservative free (Fluarix; FluLaval; [...] LUMP BIOPSY ----; COMMENT: right/benign SECTION PROCEDURE: NE DELIVERY ONLY TUBAL LIGATION PROCEDURE: HISTORICAL TUBAL LIGATION BREAST BIOPSY Right PROCEDURE: BX BREAST; PERC NEEDLE CORE W/IMAG GUID; COMMENT: neg EYE SURGERY 05/2017 Bilateral PROCEDURE: HISTORICAL EYE SURGERY; COMMENT: closed angle glaucoma COLONOSCOPY 2013 PROCEDURE: HISTORICAL COLONOSCOPY; COMMENT: no polyps UPPER GASTROINTESTINAL ENDOSCOPY 10/06/2008 PROCEDURE: NE UPPER GI ENDOSCOPY PERFORMED; COMMENT: duodenal bx: [...] IMO update Depressive disorder 04/10/2006 Dr. Robert ([facility])- PTSD, memory problems Family History Medical History [...] for your loved ones. For example, child nutrition manager or elderly care for an older adult? [...] Date Recorded What is your living situation? Unrecognized valu e 02/13/2025 Comments No Sex and Gender Information Value Date Recorded Sex Assigned at Not on file Legal Sex Female 9:52 PM EST Gender Identity Not on file Sexual Orientation Not on file Obstetrics History * This document contains information received from the source organization and may not represent a complete record from that organization. Para Term AB IAB SAB Ectopic Multiple Livin g Live Births 2 1 1 1 1 Date Outcome GA Total Labor Labor/2nd/3rd Weight Sex Type Anes PTL Kesha A1 A5 Name Clin 998 Term 40w 0d 3969 g (140 oz) F CS-Un spec Living Tabatha Delivery Location:[facility] Last Filed Vital Signs Vital Sign Reading Time Taken Comments Blood Pressure 154/92 08/27/2025 9:56 AM EDT Pulse 74 08/27/2025 9:56 AM EDT Temperature 36 C (96.8 F) 08/27/2025 9:56 AM EDT Respiratory Rate 18 07/11/2025 9:21 AM EDT Oxygen Saturation 96% 07/11/2025 9:21 AM EDT Inhaled Oxygen Concentration - - Weight 96.6 kg (213 lb) 08/27/2025 9:56 AM EDT Height 165.1 cm (5' 5 ) 08/27/2025 9:56 AM EDT Body Mass Index 35.45 08/27/2025 9:56 AM EDT Plan of Treatment Upcoming Encounters Date Type Department Care Team (Late st Contact Info) Description 02/20/2026 9:10 AM EDT Appointment Radiology Department [address] [phone] Health Maintenance Due Date Last Done Comments RSV Immunization Adult Patients (1 - Risk 50-74 years 1-dose series) 2010 Osteoporosis Screening (Bone Density Screening) 10/07/2022 Falls Risk Assessment 2025 Social Influencers of Health Screening 02/13/2026 02/13/2025 Breast Cancer Screening 02/14/2027 02/15/20, 01/18/2024, 11/16/2022, Additional history exists Cervical Cancer Screening: HPV 03/03/2027 03/03/2022 Colorectal Cancer Screening: Colonoscopy 06/30/2027 06/30/2020 Cholesterol Screening (Lipid Panel) 03/19/2028 03/19/2023, 05/04/2020 DTaP,Tdap,and Td Vaccines (4 - Td or Tdap) 12/31/2031 12/30/2021, 12/16/2010, 03/29/2004 Hepatitis B Vaccines Completed 11/25/2004, 06/28/2004, 05/25/2004 Hepatitis C Screening Completed 04/23/2017 COVID-19 Vaccine Discontinued 09/26/2021, , 11/19/2020 Zoster Vaccines Completed 03/01/2024, 07/11/2023 Depression Screening Completed 02/13/2025, 02/06/20 24 Influenza Vaccine Completed 08/14/2025, , 07/11/2023, Additional history exists HIB Vaccines Aged Out [...] this topic Pneumococcal Vaccine: 50+ Years Discontinued RSV Immunization Patients Under 20 months Aged Out No longer eligible based on patient's age to complete this topic Varicella Vaccines Aged Out No longer eligible based on patient's age to complete this topic Procedures Procedure Name Priority Date/Time Associated Diagnosis Comments POC URINE NON-AUTO W/O MICRO Routine 07/11/2025 11:02 AM EDT Acute cystitis without hematuria CULTURE URINE Routine 07/11/2025 9:55 AM EDT Acute cystitis without hematuria MG MAMMO DIGITAL SCREENING W JORDYN BILAT Routine 02/14/2025 10:03 AM EDT Breast cancer screening by mammogram HM DEPRESSION SCREENING Routine 02/06/2024 LIPID PANEL Routine 03/19/2023 HPV Routine 03/03/2022 COLONOSCOPY Routine 06/30/2020 HEPATITIS C SCREENING Routine 04/23/2017 from Last 3 Months or Most Recently Relevant to Health Maintenance Results * (ABNORMAL) POC Urine Non-Auto W/O Micro (07/11/2025 11:02 AM EDT) Glucose UA POC Negative Negative, Trace mg/dL Leukocytes UA POC 2+(A) Negative Nitrite UA POC Positive(A) Negative Urobilinogen UA POC 0.2 E.U./dL 0.2 E.U./dL, 1.0 E.U./dL, 8 , Unable to interpret due to interfering substances mg/dL Protein UA POC Trace(A) Negative mg/dL PH UA POC 6.0 Blood UA POC Trace(A) Negative Specific [place] UA POC 1.010 Ketones UA POC Negative Negative Bilirubin UA POC Negative Negative Appearance UA POC Cloudy(A) Clear Color UA POC Yellow Light Yellow, Yellow, Dark Yellow Urine Urine specimen obtained by clean catch procedure / Unknown 07/11/2025 11:02 AM EDT Zach JAEGER POINT OF CARE TEST ENTER/EDIT OR DERABLES Final Result * (ABNORMAL) Culture urine (07/11/2025 9:55 AM EDT) Culture, Urine >=100,000 CFU/mL Staphylococcus lugdunensis(A) GUDELIA 07/13/2025 9:31 AM EDT [facility] Comment: The organism value for this result has been updated. These results have been appended to the previously preliminary verified report. Urine Urine specimen obtained by clean catch procedure / Unknown Non-blood Collection / Unknown 07/11/2025 9:55 AM EDT 07/11/2025 9:55 AM EDT Narrative Organism Antibiotic Method Susceptibility Staphylococcus lugdunensis Benzylpenicillin GUDELIA >=0.5 ug/ml: Resistant Staphylococcus lugdunensis Oxacillin GUDELIA 2 ug/ml: Susceptible Staphylococcus lugdunensis Gentamicin GUDELIA <=0.5 ug/ml: Susceptible Staphylococcus lugdunensis Ciprofloxacin GUDELIA <=0.5 ug/ml: Susceptible Staphylococcus lugdunensis Levofloxacin GUDELIA 0.25 ug/ml: Susceptible Staphylococcus lugdunensis Vancomycin GUDELIA 1 ug/ml: Susceptible Staphylococcus lugdunensis Tetracycline GUDELIA <=1 ug/ml: Susceptible Staphylococcus lugdunensis Nitrofurantoin GUDELIA <=16 ug/ml: Susceptible Staphylococcus lugdunensis Rifampin GUDELIA <=0.5 ug/ml: Susceptible Zach JAEGER LAB MICROBIOLOGY - GENERAL ORDER SAHRA Final Result [facility] [address] [place] [address], * MG Mammo Digital Screening w Jordyn bilat (02/14/2025 10:03 AM EDT) Anatomical Region Laterality Modality Breast Bilateral Mammography 02/16/2025 7:17 AM EDT Impressions 02/16/2025 7:21 AM EDT BILATERAL BREASTS: Benign, no evidence of malignancy. Normal interval follow-up is recommended in 12 months. BREAST DENSITY: B - There are scattered areas of fibroglandular density. BI-RADS CATEGORY: 2 - BENIGN RECOMMENDATION: Screening bilateral mammogram is recommended in 1 year. Mammo Location: [facility], [address] [place] [address], [phone], . -------- FINAL REPORT -------- Dictated By: Ward Barrientos Dictated Date: 02/16/2025 07:17 ET Assigned Physician: Ward Barrientos Reviewed and Electronically Signed By: Ward Barrientos Signed Date: 02/16/2025 07:21 ET Workstation ID: [id number] Transcribed By: Self Edit Transcribed Date: 02/16/2025 07:17 ET Narrative 02/16/2025 7:21 AM EDT STUDY: Bilateral screening mammography with tomosynthesis and CAD TECHNIQUE: Bilateral full-field digital screening mammography is obtained and read in conjunction with computer-aided detection. Tomosynthesis as well as 2-D C view imaging were obtained. COMPARISON: Comparison made to multiple prior, most recent January 18, 2024, and most remote April 16, 2017. RIGHT BREAST: History of previous excisional biopsy. No significant masses, [...] is recommended in 1 year. Mammo Location: [facility], [address] [place] [address], [phone], . -------- FINAL REPORT -------- Dictated By: Ward Barrientos Dictated Date: 02/16/2025 07:17 ET Assigned Physician: Ward Barrientos Reviewed and Electronically Signed By: Ward Barrientos Signed Date: 02/16/2025 07:21 ET Workstation ID: [id number] Transcribed By: Self Edit Transcribed Date: 02/16/2025 07:17 ET Result [facility] Teto Cardenas MD IMG BI PROCEDURE S Final Result * Depression Screening (02/06/2024) [facility] Depression Screening abstracted Result [facility] Historical Provider HEALTH MAINTENANCE Final Result * (ABNORMAL) Lipid panel (03/19/2023) [facility] LDL/HDL Ratio 4 0 - 4 Triglycerides 90 0 - 150 mg/dL Cholesterol 201(A) 0 - 200 mg/dL HDL 49 >=40 mg/dL LDL Cholesterol 134(A) 0 - 100 mg/dL Blood Venous blood specimen / Unknown Result [facility] Historical Provider LAB BLOOD ORDERABLES Breanne l Result * Cervical Cancer Screening: HPV (03/03/2022) [facility] Cervical Cancer Screening: HPV no interpretation , abstracted Result [facility] Historical Provider HEALTH MAINTENANCE Final Result * Colonoscopy (06/30/2020) [facility] Colonoscopy no interpretation , abstracted Anatomical Region Laterality Modality Other Historical Provider HEALTH MAINTENANCE Final Result * Hepatitis C Screening (04/23/2017) [facility] Hepatitis C Screening abstracted Result [facility] Historical Provider HEALTH MAINTENANCE Final Result from Last 3 Months or Most Recently Relevant to Health Maintenance Insurance [employer] Care Teams Cryptological Technician Relationship Specialty Start Date End Date Teto Cardenas MD [address] [place] [phone] PCP - General 01/09/23
--- OUTSIDE RECORDS SUMMARY | 2025-09-09 13:20 | XMS_ITS | Patient Health Record ---
Author Organization [facility] Address [address] [place] [address] Care Team Providers Care Director Of Cardiac Cath Lab Name Role Phone Delfino Farah Unavailable [phone] Allergies Allergen (clinical drug ingredient) Drug/Non Drug [...] 3 TIMES A DAY NEEDED FOR PAIN Oral; Duration: 3 Not-Taking DULoxetine HCl 30 MG 1 capsule Orally On ce a day; Duration: 30 day(s) Not-Taking Pregabalin Active Allergy Active [...] W/U Status Risk Notes Problem Interstitial myositis (44698979) Interstitial myositis of left foot (M60.172) Active confirmed Plan Of Treatment Pending Test Test Name Order Date X ray : Foot, left 3V 06/21/2023 [id number] TENDON SHEATH/LIGAMENT 0 07/24/2023 Insurance Providers Payer Name Payer Address Payer Phone Subscriber Number Group Number Insured Name Patient Relationship to Insured Coverage Start Date Coverage End Date Tou[place] [address] [place] [phone] [id number] ChristosAminata deng Self - patient is the insured Medical [...]
== END 2025-09-09 10:56 | disposition home or self-care (01) ==
LOC: HO.NEURO 10:55
PROVIDERS: PCP Family Medicine; Visit Provider Internal Medicine Rheumatology
DX: R20.0 Anesthesia of skin (principal); R20.2 Paresthesia of skin; M79.605 Pain in left leg; M79.604 Pain in right leg
CPT/HCPCS: 95886; 95913

== ENCOUNTER → 2025-09-09 11:10 | Outpatient (BNV) | payer OTHER, SELFPAY | PROVIDERS: PCP Family Medicine; Visit Provider Psychiatry & Neurology Neurology | DX: G57.53 Tarsal tunnel syndrome, bilateral lower limbs (principal); G62.89 Other specified polyneuropathies | CPT/HCPCS: 95886; 95913 ==